=== PATIENT | male | born 1960 | race Caucasian/White ===

== ENCOUNTER 2024-02-13 14:19 | Outpatient (AMB) | payer OTHER, SELFPAY ==
--- NOTE | 2024-02-13 13:42 | ORTHONT_ITS ---
Med/Allergies Allergies & Medications Allergies No Known Allergies Allergy (Verified 02/13/24 13:42) Medication Reconciliation levothyroxine 175 mcg tablet 175 mcg PO QDAY 12/17/17 [History Confirmed 02/13/24] metformin 500 mg tablet (Glucophage) 500 mg PO DAILY 12/17/17 [History Confirmed 02/13/24] simvastatin 20 mg tablet 20 mg PO QPM 12/17/17 [History Confirmed 02/13/24] spironolactone 50 mg tablet 50 mg PO QDAY 12/17/17 [History Confirmed 02/13/24] albuterol sulfate 2.5 mg/3 mL (0.083 %) solution for nebulization 2.5 mg inhalation Q6H 02/03/24 [History Confirmed 02/13/24] budesonide 1 mg/2 mL suspension for nebulization 0.5 mg inhalation BID 02/03/24 [History Confirmed 02/13/24] gabapentin 300 mg capsule 300 mg PO QDAY 02/03/24 [History Confirmed 02/13/24] hydrochlorothiazide 25 mg tablet 25 mg PO QDAY 02/03/24 [History Confirmed 02/13/24] ibuprofen 600 mg tablet 600 mg PO Q8H PRN 02/03/24 [History Confirmed 02/13/24] meloxicam 7.5 mg tablet 7.5 mg PO BID #45 tabs 02/03/24 [Rx Confirmed 02/13/24] Subjective Visit Visit for: new patient, knee and x-rays Immunization / Flu Flu Vaccine in the Last 12 Months: No Flu Vaccine Exclusion Criteria: No Exclusion Criteria History of Present Illness Chief complaint: F/U XRAYS Date of injury / onset of symptoms: 3-4 MONTHS Patient Is a pleasant 63-year-old male with left knee pain. This has been ongoing for 3 months. He reports this occurred after a dog hit him in the inside of the knee. The pain is improving. Swelling abrasions trying ibuprofen. The pain has improved somewhat Personal History Occupation: RETIRED Pain Pain level (0-10): 1 Pain duration: ALL DAY Pain location: inside (medial), outside (lateral) and anterior Pain quality: dull Pain timing: increases with activity Associated signs & symptoms: none Ambulatory data Ambulatory device: other (specify) (KNEE BRACE) Treatments Improvement with previous injections: No Improvement with PT: No Improvement with NSAIDS: n/a Review of Systems Review of Systems: All systems negative unless otherwise noted in HPI. Assessment and Plan Problem List (1) Arthritis of left knee: Status: Acute Plan: Patient is a pleasant 63-year-old male with left knee arthritis. We discussed nonoperative and operative options. He has a degenerative meniscal tear as well. X-rays demonstrate moderate arthritis. The pain is subsided somewhat. He can call us to make an appointment for injection should the pain return. He does have moderate to severe arthritis. 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
== END 2024-02-13 14:30 | disposition home or self-care (01) ==
LOC: HODSRG 14:19
PROVIDERS: PCP Surgery; Referring Provider Surgery; Supervising Provider Orthopaedic Surgery Adult Reconstructive Orthopaedic Surgery; Visit Provider Orthopaedic Surgery Adult Reconstructive Orthopaedic Surgery
DX: M17.12 Unilateral primary osteoarthritis, left knee (principal); S83.207D Unspecified tear of unspecified meniscus, current injury, left knee, subsequent encounter; X58.XXXD Exposure to other specified factors, subsequent encounter
CPT/HCPCS: 99212; G0463

== ENCOUNTER 2024-03-17 10:00 | Outpatient (RCR) | payer OTHER, SELFPAY ==
--- NOTE | 2024-02-23 13:28 | PT.ODAYNRPT ---
PT Outpatient Daily Note OP Daily Note Outpatient Physical Therapy Treatment Date: 02/23/24 Visit Reasons: right carpal tunnel surgery Subjective: Pt's hand feels stronger and will like to progress all hand exercises to green resistance Objective: Please see flow chart for list of ther ex performed Assessment: increase all hand exercises to green with good tolerance Plan: Continue with PT Length of Time (minutes) of Treatment: 30 Minutes Procedure Charges Therapeutic Exercise 30 minutes: Yes
--- NOTE | 2024-02-26 14:20 | PT.ODAYNRPT ---
PT Outpatient Daily Note OP Daily Note Outpatient Physical Therapy Treatment Date: 02/26/24 Visit Reasons: right carpal tunnel surgery Subjective: Pt reports R hand is progressing. Objective: Please see flow sheet for ther ex list. Assessment: Pt used 3lb for functional hand strengthening exercises pt completed with fatigue but no pain. Plan: Continue with POC. Length of Time (minutes) of Treatment: 30 Minutes Procedure Charges Therapeutic Exercise 30 minutes: Yes
--- NOTE | 2024-03-09 11:36 | PT.ODAYNRPT ---
PT Outpatient Daily Note OP Daily Note Outpatient Physical Therapy Treatment Date: 03/09/24 Visit Reasons: right carpal tunnel surgery Subjective: Pt reports R hand is progressing but slow. Objective: Please see flow sheet for ther ex list. Assessment: Continued with focus on improving function of R hand, increased resistance today pt tolerated well. Plan: Continue with POC. Length of Time (minutes) of Treatment: 30 Minutes Procedure Charges Therapeutic Exercise 30 minutes: Yes
--- NOTE | 2024-03-17 10:44 | PT.ODAYNRPT ---
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 Objective: Please see flow chart for list of ther ex performed Assessment: slight progress with hand strength. Increase shoulder 4 way exercises with green TB Plan: Continue with PT Length of Time (minutes) of Treatment: 30 Minutes Procedure Charges Therapeutic Exercise 30 minutes: Yes
== END 2024-03-20 23:59 | disposition home or self-care (01) ==
LOC: CPTX 10:00
PROVIDERS: PCP Surgery; Referring Provider Surgery; Visit Provider Surgery
DX: M79.641 Pain in right hand (principal); R53.1 Weakness; Z98.890 Other specified postprocedural states
CPT/HCPCS: 97110

== ENCOUNTER 2024-03-29 10:00 | Outpatient (RCR) | payer OTHER, SELFPAY ==
--- NOTE | 2024-03-23 11:24 | PT.ODAYNRPT ---
PT Outpatient Daily Note OP Daily Note Outpatient Physical Therapy Treatment Date: 03/23/24 Visit Reasons: right carpal tunnel surgery Subjective: Pt reports some progress with R hand but is slow. Objective: Please see flow sheet for ther ex list. Assessment: Progressing resistance and weight for functional hand strengthening as tolerated. Plan: Continue with POC. Length of Time (minutes) of Treatment: 30 Minutes LATEXER Service Modifier Method I: Divide the number of min of care provided by the LATEXER/SEWING MACHINE OPERATOR SEMIAUTOMATIC by the total min of care provided then multiply by 100. If greater than 11 percent modifier is required. Method II: Divide the total time of care provided to patient by 10 (round to the nearest whole number) and add 1 min. to set the minimum time requirement. If treatment total was 60 min., then 10% of 6 min PT CQ modifier applied: CQ Modifier applied Procedure Charges Therapeutic Exercise 30 minutes: Yes
--- NOTE | 2024-03-25 14:06 | PT.ODAYNRPT ---
PT Outpatient Daily Note OP Daily Note Outpatient Physical Therapy Treatment Date: 03/25/24 Visit Reasons: right carpal tunnel surgery Subjective: Pt's hand is doing okay. 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 Objective: Please see flow chart for list of ther ex performed Assessment: minimal changes in hand strength and mobility at this time. Plan: Continue with PT Length of Time (minutes) of Treatment: 30 Minutes Procedure Charges Therapeutic Exercise 30 minutes: Yes
--- NOTE | 2024-03-29 11:52 | PT.ODS1RPT ---
PT OP Progress/Discharge Note Date of Service: 03/29/24 Progress Note/DC Note Progress Note/Discharge Note: DC Note Patient Information Visit Reasons: right carpal tunnel surgery Medical Diagnosis: G56.01 Treatment Dx #1: Right Hand Mobility Deficits Service Discharge Date: 03/29/24 Status Subjective: Pt's hand feels better but continues to notice weakness. Pt has been able to resume most ADLs at home, however, still has limitation with leisure activities. At this time Pt will stop physical therapy and follow up with MD. Objective: Right Wrist AROM Flexion: 80 deg Extension: 70 deg Pronation/Supination: WNL Radial/Ulnar Deviation: WNL Right Wrist MMTs: grossly 3+/5 Staff Therapist Strength L: 120 lbs R: 41 lbs Sun Pinch L: 17 lbs R: 1 lbs Assessment: Pt exhibit decrease hand pain, however, hand strength is regressing despite attending and completing authorized PT session. Pt will no longer benefit from physical therapy due to plateau towards goals. Pt was instructed on HEP last session and educated to continue exercises to maintain overall mobillity. Pt performed all exercises safely, thank you for your referrals. Plan: D/C home with HEP and follow up with PRN Procedure Charges Therapeutic Exercise 30 minutes: Yes
== END 2024-04-20 23:59 | disposition home or self-care (01) ==
LOC: CPTX 10:00
PROVIDERS: PCP Surgery; Referring Provider Surgery; Visit Provider Surgery
DX: M79.641 Pain in right hand (principal); R53.1 Weakness; Z98.890 Other specified postprocedural states
CPT/HCPCS: 97110

== ENCOUNTER → 2025-03-09 | Outpatient (CLI) | payer OTHER, SELFPAY ==
--- NOTE | 2025-03-09 14:00 | XR_ITS ---
EXAMINATION: Ultrasound abdominal aorta Date and time: March 09, 2025, 1349 hours INDICATIONS: Nicotine dependence diagnosis TECHNIQUE AND FINDINGS: Grayscale sonographic images abdominal aortic Transverse dimension proximal aorta 2.2 cm mid aorta 1.5 cm distal aorta 1.3 cm right iliac 1.0 cm Left iliac 1.0 cm IMPRESSION: Negative for abdominal aortic aneurysm
--- NOTE | 2025-03-09 14:30 | XR_ITS ---
Examination: CT high-resolution lung low dose screening, without contrast. 2-D sagittal reconstructions. 2-D coronal reconstructions. 3-D reconstructions. Date and time of exam: March 09, 2025, 1411 hours INDICATIONS: Shortness of breath chronic since 2019, COVID diagnosis CTDI: vol (mGy): 21.3 DLP: (mGycm): 748 COMPARISON: August 15, 2022 Technique: Multiple 1.25 mm axial sections of the low-dose lung images have been obtained. 2-D sagittal and coronal reconstructions have been obtained. 3-D reconstructions have been obtained. Low dose protocols were performed. One or more of the following dose reduction techniques were used; automated exposure control, adjustment of the mA and/or KV according to patient size, use of iterative reconstruction technique. Findings: No thoracic aortic aneurysmal dilatation Pulmonary artery segments are not enlarged Mild enlargement cardiac contour Again noted significant scarring throughout the lungs No lobar pneumonia No pleural disease No visualized liver or splenic lesion No pancreatic mass no gallstones No hydronephrosis IMPRESSION: Again noted significant scarring throughout both lungs
== END | disposition home or self-care (01) ==
PROVIDERS: PCP Nurse Practitioner; Referring Provider Nurse Practitioner; Visit Provider Nurse Practitioner
DX: R91.8 Other nonspecific abnormal finding of lung field (principal); F17.221 Nicotine dependence, chewing tobacco, in remission
CPT/HCPCS: 71271; 76706

== ENCOUNTER → 2025-03-10 | Outpatient (CLI) | payer OTHER, SELFPAY ==
--- NOTE | 2025-03-10 14:00 | XR_ITS ---
EXAMINATION: Thyroid sonography complete TECHNIQUE: Grayscale sonographic images thyroid lobes Date and time: March 10, 2025, 1339 hours INDICATIONS: Shortness of breath neck tightness beginning 5 years ago, s/p COVID with history of tracheostomy for 6 months in 2019 FINDINGS: Right thyroid 2.7 cm Left thyroid 3.3 cm No thyroid nodules IMPRESSION: Negative examination
== END | disposition home or self-care (01) ==
PROVIDERS: PCP Nurse Practitioner; Referring Provider Nurse Practitioner; Visit Provider Nurse Practitioner
DX: R06.02 Shortness of breath (principal)
CPT/HCPCS: 76536